=== PATIENT | female | born 1960 | race Caucasian/White ===

== ENCOUNTER → 2023-09-14 | Outpatient (CLI) | payer OTHER ==
[~2023-09-14] MED LIST: ACET325 PO; CALCIUM 500 +1 EAC2 PO; ENAL10 PO; GABA300 PO; GABA400 PO; LORA.5 PO; METO25ER PO; NIFE90ER PO; POLY500 PO; Prenatal Vitam1 EAC2 PO; Senna Plus Tab1 EACH PO; VASOTEC PO
== END ==
LOC: LAB SHORT 15:54 → LAB 15:54
DX: S81.802A Unspecified open wound, left lower leg, initial encounter (principal)
CPT/HCPCS: 87070; 87077; 87186; 87205

== ENCOUNTER → 2024-10-18 | Outpatient (CLI) | payer OTHER | LOC: LAB SHORT 15:22 → LAB 15:22 | DX: L03.116 Cellulitis of left lower limb (principal) | CPT/HCPCS: 87070; 87205 ==